=== PATIENT | female | born 1945 | race Caucasian/White ===

== ENCOUNTER 2017-09-03 03:46 | Outpatient (CLI) | payer MEDICARE, BC ==
[~2017-09-03 03:46] MED LIST: ALBU8.5H8 IH; ASPI-1265 PO; BUDE10.2 INH; CLOT15CR74 TP; DOCU100C41 PO; ERGO2000 PO; ESCI20TA38 PO; FENO160T PO; FURO-150 PO; PANT-47 PO; PB8 PROBIOTIC PO; VITA400C21 PO
== END 2017-09-03 23:59 | disposition home or self-care (01) ==
LOC: DIABETIC 03:46
PROVIDERS: ATTEND Specialist
DX: E11.9 Type 2 diabetes mellitus without complications (principal); I10 Essential (primary) hypertension; J44.9 Chronic obstructive pulmonary disease, unspecified
CPT/HCPCS: G0108

== ENCOUNTER 2017-12-01 04:45 | Outpatient (CLI) | payer MEDICARE, BC | END 2017-12-01 23:59 | disposition home or self-care (01) | LOC: DIABETIC 04:45 | PROVIDERS: ATTEND Specialist | DX: E11.9 Type 2 diabetes mellitus without complications (principal); I10 Essential (primary) hypertension; J44.9 Chronic obstructive pulmonary disease, unspecified | CPT/HCPCS: G0108 ==

== ENCOUNTER 2018-03-10 01:23 | Outpatient (CLI) | payer MEDICARE, BC | END 2018-03-10 23:59 | disposition home or self-care (01) | LOC: DIABETIC 01:23 | PROVIDERS: ATTEND Specialist | DX: E11.9 Type 2 diabetes mellitus without complications (principal); I10 Essential (primary) hypertension; J44.9 Chronic obstructive pulmonary disease, unspecified; Z79.899 Other long term (current) drug therapy; Z88.8 Allergy status to other drugs, medicaments and biological substances; Z79.82 Long term (current) use of aspirin; Z90.710 Acquired absence of both cervix and uterus; Z90.11 Acquired absence of right breast and nipple | CPT/HCPCS: G0108 ==

== ENCOUNTER 2018-06-15 03:09 | Outpatient (CLI) | payer MEDICARE, BC | END 2018-06-15 23:59 | disposition home or self-care (01) | LOC: DIABETIC 03:09 | PROVIDERS: ATTEND Specialist | DX: E11.9 Type 2 diabetes mellitus without complications (principal); I10 Essential (primary) hypertension; J44.9 Chronic obstructive pulmonary disease, unspecified; Z79.84 Long term (current) use of oral hypoglycemic drugs; Z91.011 Allergy to milk products; Z88.8 Allergy status to other drugs, medicaments and biological substances; Z90.710 Acquired absence of both cervix and uterus | CPT/HCPCS: G0108 ==

== ENCOUNTER 2018-10-24 13:16 | Inpatient (IN) | payer MEDICARE, BC | END 2018-10-27 13:05 | disposition home or self-care (01) | LOC: ER 13:16 → ED HOLD 19:09 → PCU 3S 20:45 | DX: I26.99 Other pulmonary embolism without acute cor pulmonale (principal); J96.01 Acute respiratory failure with hypoxia ==

== ENCOUNTER 2018-11-10 13:14 | Outpatient (CLI) | payer MEDICARE, BC ==
[~2018-11-10 13:14] MED LIST changes: +APIX5TAB3 PO; -ASPI-1265 PO; -FURO-150 PO; +METF-950 PO; -PANT-47 PO; +PANT40TA4 PO; -VITA400C21 PO
== END 2018-11-10 23:59 | disposition home or self-care (01) ==
LOC: CARD DIAG 13:14
PROVIDERS: ATTEND Internal Medicine Critical Care Medicine
DX: I34.0 Nonrheumatic mitral (valve) insufficiency (principal)
CPT/HCPCS: 93306

== ENCOUNTER 2018-12-16 01:55 | Outpatient (CLI) | payer MEDICARE, BC ==
[~2018-12-16 01:55] MED LIST changes: -METF-950 PO
== END 2018-12-16 23:59 | disposition home or self-care (01) ==
LOC: DIABETIC 01:55
PROVIDERS: ATTEND Specialist
DX: E11.65 Type 2 diabetes mellitus with hyperglycemia (principal); I10 Essential (primary) hypertension; J45.909 Unspecified asthma, uncomplicated; Z79.84 Long term (current) use of oral hypoglycemic drugs; Z79.899 Other long term (current) drug therapy; Z88.8 Allergy status to other drugs, medicaments and biological substances
CPT/HCPCS: G0108

== ENCOUNTER 2019-03-18 03:19 | Outpatient (CLI) | payer MEDICARE, BC | END 2019-03-18 23:59 | disposition home or self-care (01) | LOC: DIABETIC 03:19 | PROVIDERS: ATTEND Specialist | DX: E11.9 Type 2 diabetes mellitus without complications (principal) | CPT/HCPCS: G0108 ==

== ENCOUNTER 2019-08-09 02:22 | Outpatient (CLI) | payer MEDICARE, BC ==
[~2019-08-09 02:22] MED LIST changes: -ESCI20TA38 PO; +ESCI20TA45 PO
== END 2019-08-09 23:59 | disposition home or self-care (01) ==
LOC: DIABETIC 02:22
PROVIDERS: ATTEND Specialist
DX: E11.65 Type 2 diabetes mellitus with hyperglycemia (principal); Z79.84 Long term (current) use of oral hypoglycemic drugs
CPT/HCPCS: G0108